=== PATIENT | male | born 1990 | race Caucasian/White ===

== ENCOUNTER 2019-05-07 15:03 | Emergency (ER) | payer OTHER ==
[~2019-05-07] VITALS: Ht 185.4 cm; Wt 72.6 kg
[2019-05-07] MEDS ORDERED: VISTARIL 25 MG25 M1 PO (15:47)
[2019-05-07] MEDS ORDERED: PREDNISONE 10 M10 M1 PO (15:47)
[2019-05-07 16:02] VITALS: BP 140/96
== END 2019-05-07 16:03 | disposition home or self-care (01) ==
LOC: M.ERS 15:03
DX: L23.7 Allergic contact dermatitis due to plants, except food (principal)